=== PATIENT | female | born 1945 | race Caucasian/White ===

== ENCOUNTER 2019-03-10 23:42 | Observation (INO) | payer OTHER, SELFPAY ==
--- NOTE | 2019-03-10 23:47 | ED_ITS ---
HPI - General Adult General Chief complaint: Arrhythmia/Palpitations Stated complaint: AFIB Time Seen by Provider: 03/10/19 23:45 Source: patient Mode of arrival: ambulatory Limitations: no limitations History of Present Illness HPI narrative: Patient is a 74-year-old female. She is visiting the local area from [place]. Here for evaluation of which she thinks is an episode of atrial fibrillation. Patient states that several weeks ago she had her 1st episode of atrial fibrillation. Prior to that she stated that she had been diagnosed with SVT earlier in her life. She never had a diagnosis of atrial fibrillation but she states that she most likely had bouts of it earlier in her life but wishes never diagnosed. During her 1st episode she was seen in the emergency department. Had what appeared to be a Cardizem bolus which converted her to a sinus rhythm and she was discharged from the emergency department. Since then she has had 1 other episode of atrial fibrillation again requiring Cardizem martinez karon this time she had to be placed on a drip and admitted to the hospital. She has never been cardioverted. She has seen a cushion cover inspector since the onset of the symptoms. She states that she has had an echocardiogram. She does not remember the specifics of the results however was told by her cushion cover inspector that everything looked okay. She is on Eliquis. Has been on Eliquis for the past several weeks. She is currently wearing a Holter monitor. She stated that she was at her normal state health until a couple hours prior to arrival here in the emergency department she had what felt like another onset of atrial fibrillation. She was having small amount of chest discomfort. No headache. N o dizziness. Related Data Allergies Allergy/AdvReac Type Severity Reaction Status Date / Time levofloxacin [From Levaquin] Allergy Verified 03/10/19 23:54 Review of Systems Constitutional Denies fatigue and Denies headache(s) ENT Ears, Nose, Mouth, and Throat: Denies vertigo, Denies dizziness and Denies he adache(s) Cardiovascular Reports chest pain, Denies diaphoresis, Denies edema, Reports irregular heart rhythm, Reports palpitations, Denies dyspnea and Denies dyspnea on exertion Respiratory Denies cough, Denies dyspnea and Denies dyspnea on exertion Gastrointestinal Gastrointestinal: Denies abdominal pain, Denies nausea and Denies vomiting Genitourinary Denies dysuria Musculoskeletal Denies back pain, Denies myalgias and Denies arthralgias Integumentary/Breasts Denies rash Neurologic Denies vertigo, Denies dizziness and Denies headache(s) Endocrine Denies fatigue and Reports palpitations Hematologic/Lymphatic Comments: On Eliquis Allergic/Immunologic Denies urticaria [facility] Medical History Atrial fibrillation (Acute) SVT (supraventricular tachycardia) (Acute) Social History marital status: lives independently: Yes Social History marital status: lives independently: Yes Exam Initial Vital Signs Initial Vital Signs: Vital Signs Temperature 98.2 F 03/10/19 23:48 Pulse Rate 121 H 03/10/19 23:48 Respiratory Rate 15 03/10/19 23:48 Blood Pressure 142/102 H 03/10/19 23:48 Pulse Oximetry 96 03/10/19 23:48 Const General: cooperative, comfortable, well developed, well groomed and No acute distress Orientation: alert and oriented x3 HENMT Head: normal to inspection and normocephalic Resp Effort & Inspection: normal respiratory effort Auscultation: clear to auscultation bilaterally Cardio Rate: tachycardic Rhythm: abnormal rhythm irregularly irregular Pulses: radial pulses present bilaterally GI Inspection: non-distended Palpation: soft, No firm and No tender Skin Lesions: no lesions Rashes: no rashes Neuro General: alert, awake and oriented x3 Cognition: normal cognition Speech: speech normal Gait: normal gait Motor: muscle tone normal throughout Extrem General: normal to inspection, capillary refill normal and No edema Psych Appearance: grossly normal and well kempt Procedures Cardioversion Consent Signed: Yes Indication: Atrial fibrillation Cardiac rhythm prior to cardioversion: Atrial fibrillation Stability: Stable Number of attempts (shocks): 2 Joules used: 150 and 200 Cardiac rhythm post-cardioversion: Atrial fibrillation Procedural Sedation Patient Age: Patient is 5yrs or older Consent signed: Yes Time out performed: Yes Indication: cardioversion ASA Class: II Mallampati Airway Classification: Class II Preparation: conveyor monitor applied, capnometry used, supplemental O2 applied and suction/airway equipment at bedside Fentanyl: IV Fentanyl dose (mcg): 50 Midazolam: IV Midazolam dose (mg): 3 ED Sedation Level: Moderate (Concious) Patient Tolerated Procedure: Well Complications: hypoventilation Interventions: Airway repositioned and Assist by BVM Scores GCS Ashish coma scale eye opening: Spontaneous [place] coma scale verbal response: Orientated Ashish coma scale motor response: Obey commands Ashish coma scale total score: 15 Course Orders Ordered: ED Orders 03/10/19 23:46 EKG-12 Lead Stat 03/11/19 00:01 Complete Blood Count AUTO DIFF Stat Comprehensive Metabolic Panel Stat Lipase Stat Partial Thromboplastin Time Stat Prothrombin Time INR Stat 03/11/19 01:19 EKG-12 Lead Stat 03/11/19 02:20 EKG-12 Lead Stat Sodium Chloride (Normal Saline 0.9%) 1,000 mls @ 1,000 mls/hr IV BOLUS ONE Stop: 03/11/19 03:17 Diltiazem HCl 125 mg/ Dextrose 125 mls @ 5 mls/hr IV TITRATE SANDHYA; Protocol Discontinued Medications Diltiazem HCl (Cardizem) 20 mg IV NOW ONE Stop: 03/11/19 00:10 Last Admin: 03/11/19 00:24 Dose: 20 mg Fentanyl (Sublimaze) 50 mcg IV NOW ONE Stop: 03/11/19 02:32 Midazolam HCl (Versed) 3 mg IV NOW ONE Stop: 03/11/19 02:32 Vital Signs - 8 hr 03/10/19 23:48 03/11/19 00:24 03/11/19 00:44 Temperature 98.2 F Pulse Rate 121 H 124 H 89 Respiratory Rate 15 20 Blood Pressure 142/102 H 148/84 H Blood Pressure [Right Arm] 152/85 H Pulse Oximetry 96 97 03/11/19 01:13 Temperature Pulse Rate 92 H Respiratory Rate 16 Blood Pressure Blood Pressure [Right Arm] 116/61 Pulse Oximetry 97 Medical Decision Making Lab Data Lab results reviewed: Yes I reviewed the patient's lab results. Result diagrams: 03/11/19 00:01 03/11/19 00:01 Lab Results 03/11/19 03/11/19 03/11/19 Range/Units 00:01 00:01 00:01 WBC 7.4 (4.5-11.0) X10^3/uL RBC 3.79 L (4.0-5.2) X10^6/uL Hgb 12.7 (12.0-16.0) g/dL Hct 36.2 (36-46) % MCV 95.4 (80-100) fL MCH 33.4 (26-34) PG MCHC 35.1 (30-36) % RDW 11.9 (11.6-14.8) % Plt Count 234 (150-400) X10^3/uL Neut % (Auto) 66.8 (50-75) % Lymph % (Auto) 19.6 L (25-40) % [place] % (Auto) 10.1 (3-14) % Eos % (Auto) 2.7 (2-4) % Baso % (Auto) 0.8 (0-2) % Neut # (Auto) 4900 (9103-0047) /uL Lymph # (Auto) 1400 (5229-6312) /uL [place] # (Auto) 700 (0-900) /uL Eos # (Auto) 200 (0-450) /uL Baso # (Auto) 100 (0-100) /uL PT 14.3 H (10.1-12.7) SECONDS INR 1.2 (0.9-1.3) APTT 36 (26.4-36.2) SECONDS Sodium 131 L (137-145) mmol/L Potassium 3.4 (3.4-5.1) mmol/L Chloride 95 L (98-107) mmol/L Carbon Dioxide 26 (22-32) mmol/L BUN 30 H (7-17) mg/dL Creatinine 0.90 (0.52-1.04) mg/dL Estimated GFR > 60.0 (>60) mL/min BUN/Creatinine Ratio 33.3 H (6-22) Glucose 112 H (80-110) mg/dL Calcium 8.5 (8.4-10.2) mg/dL Total Bilirubin 0.4 (0.2-1.3) mg/dL AST 48 H (14-36) IU/L ALT 29 (9-52) IU/L Alkaline Phosphatase 213 H (38-126) U/L Total Protein 7.9 (6.3-8.2) g/dL Albumin 3.5 (3.5-5.0) g/dL Globulin 4.4 H (1.7-4.1) g/dL Albumin/Globulin Ratio 0.8 L (1.0-2.8) Lipase 203 (23-300) U/L Point of Care Testing Test Results Not applicable Point of care testing: Point of Care Testing Test Results Not applicable ECG Data Attestation: I personally reviewed and interpreted this ECG as follows: Prior ECG tracings: not available for review Interpretation: EKG timed 2350 hours Atrial fibrillation Ventricular rate of 110 Left axis deviation Incomplete right bundle branch block Normal QRS Normal QTC No ST T wave changes EKG timed 0130 hours after Cardizem bolus Atrial fibrillation Ventricular rate of 96 Left axis deviation Normal QRS Normal QTC No ST T wave changes EKG time 0233 hours after cardioversion Atrial fibrillation Ventricular rate of 109 Left axis deviation Incomplete right bundle branch block Normal QRS Nonspecific ST T wave changes MDM Narrative Medical decision making narrative: Patient arrived stable atrial fibrillation. Had a discussion with her regarding options to include rate control versus rhythm control. Patient opted to try the Cardizem bolus 1st because this has been successful in the past. She was given 20 mg of Cardizem but this was unsuccessful in converting the rhythm. Her rate was improved. Had further discussion with her regarding options to include sedation with cardioversion for starting her on a Cardizem bolus. The patient opted to go with the cardioversion. She was sedated with fentanyl and Versed which she tolerated well. Two attempts at cardioversion 1st at 150 joules and 2nd 200 joules were unsuccessful. Patient was placed on a Cardizem drip. Patient was never unstable during her time here. She has been anticoagulated for the past several weeks. Will admit the patient for further evaluation and treatment. Discussed admission with the patient and the . They expressed understanding and agreement. Discussed the case with the night hospitalist who accepts. Critical Care Time Critical Care Time: Yes Total Critical Care Time: 40 Attestation: The high probability of a clinically significant, sudden or life threatening deterioration of the cardiovascular system(s) required my full and direct attention, intervention and personal management. The aggregate critical care time was 40 minutes. This time is in addition to time spent performing reported procedures but includes the following: [] Data Review and interpretation [] Patient assessment and monitoring of vital signs [] Documentation [] Medication orders and management Discharge Plan Departure Patient Disposition: Admitted As Inpatient Clinical Impression: Atrial fibrillation Qualifiers: Atrial fibrillation type: paroxysmal Qualified Code(s): I48.0 - Paroxysmal atrial fibrillation
[2019-03-10 23:48] VITALS: BP 142/102; PULSE 121; RESP 15; TEMP 36.8; O2SAT 96; BMI 24.4
[2019-03-11] VITALS (28 sets, daily range): BP systolic 87–152; BP diastolic 42–115; PULSE 61–125; RESP 10–21; TEMP 36.8–37.1; O2SAT 94–99; BMI 24.4
[2019-03-11 00:23] LABS: Add Manual Diff / Slide Review NO; Basophils Absolute Auto 100 /uL (0-100); Basophils Percent Auto 0.8 % (0-2); Eosinophils Absolute Auto 200 /uL (0-450); Eosinophils Percent Auto 2.7 % (2-4); Hematocrit 36.2 % (36-46); Hemoglobin 12.7 g/dL (12.0-16.0); Lymphocytes Absolute Auto 1400 /uL (1100-4500); Lymphocytes Percent Auto 19.6 % (25-40); Mean Corpuscular HGB Conc 35.1 % (30-36); Mean Corpuscular Hemoglobin 33.4 PG (26-34); Mean Corpuscular Volume 95.4 fL (80-100); Monocytes Absolute Auto 700 /uL (0-900); Monocytes Percent Auto 10.1 % (3-14); Neutrophils Absolute Auto 4900 /uL (1500-7000); Neutrophils Percent Auto 66.8 % (50-75); Platelet Count 234 X10^3/uL (150-400); Red Blood Cell Count 3.79 X10^6/uL (4.0-5.2); Red Cell Distribution Width 11.9 % (11.6-14.8); White Blood Cell Count 7.4 X10^3/uL (4.5-11.0)
[2019-03-11] MEDS: dilTIAZem 5 MG/ML SDV 20 MG IV (00:24)
[2019-03-11 00:31] LABS: INR 1.2 (0.9-1.3); Prothrombin Time 14.3 SECONDS (10.1-12.7)
[2019-03-11 00:33] LABS: PTT Partial Thromboplastin Tim 36 SECONDS (26.4-36.2)
[2019-03-11 00:34] LABS: Alanine Aminotransferase 29 IU/L (9-52); Albumin 3.5 g/dL (3.5-5.0); Albumin Globulin Ratio 0.8 (1.0-2.8); Alkaline Phosphatase 213 U/L (38-126); Aspartate Aminotransferase 48 IU/L (14-36); BUN Creatinine Ratio 33.3 (6-22); Bilirubin Total 0.4 mg/dL (0.2-1.3); Blood Urea Nitrogen 30 mg/dL (7-17); Calcium 8.5 mg/dL (8.4-10.2); Carbon Dioxide 26 mmol/L (22-32); Chloride 95 mmol/L (98-107); Estimated Glomerular Filt Rate > 60.0 mL/min (>60); Globulin 4.4 g/dL (1.7-4.1); Glucose 112 mg/dL (80-110); HEMOLYSIS 25 (0-50); Lipase 203 U/L (23-300); Potassium 3.4 mmol/L (3.4-5.1); Sodium 131 mmol/L (137-145); Total Protein 7.9 g/dL (6.3-8.2)
[2019-03-11] MEDS: SODIUM CHLORIDE 0.9% 1,000 ML 1000 ML IV (02:15)
[2019-03-11] MEDS: MIDAZOLAM 5 MG/ML VIAL 3 MG IV (02:20)
[2019-03-11] MEDS: fentaNYL 100 MCG/2 ML INJ 50 MCG IV (02:21)
[2019-03-11] MEDS: dilTIAZem 125 MG in DEXTROSE 5 % IN WATER 100 ML IV (02:47)
--- NOTE | 2019-03-11 03:02 | PC.NURSE ---
0210 Pt moved to RM1 from RM 8 for procedural sedation for sync cardioversion for afib. Pt and spouse reviewed the procedure and consent signed. RT at the bedside and setting up equipments for procedural sedation.
[2019-03-11 03:42] LABS: Magnesium 1.5 mg/dL (1.6-2.3); Phosphorous 3.2 mg/dL (2.8-4.1)
--- NOTE | 2019-03-11 04:33 | PC.NURSE ---
Addendum entered by Charlie Pulliam R.N. 03/11/19 04:36: Pt still in Afib rhythm Original Note: Pt maintaining her HR in 80-90's with Cardizem drip at 7.5 mg/hr. Denies cp, sob, palpitation
--- NOTE | 2019-03-11 06:58 | PC.NURSE ---
Patient admitted to ICU at 0500. A/O x4. Diltiazem gtt infusing at 7.5mg/hr with NS @ 75ml/hr, remains in A-fib, rate 80s-90s, increased briefly to 120s while up to BR, denies chest pain, pressure, palpitations, or dizziness. Diltiazem gtt decreased to 5mg/hr at 0530. See vital trends.
[2019-03-11] MEDS: MAGNESIUM SULFATE 2 GM/50 ML PIGGYBACK IV (08:26)
--- NOTE | 2019-03-11 08:55 | CM.DANOTE ---
Discharge Planning/Care Management DCP: assessment: initiated: case received, EMR reviewed and including the inside sales advisor assessment last night: social service consult needed. Documentation reveals that pt is a 39 year old female who admitted last night: 22:20 as a direct admit from [facility]. Payer: Medicare Admission status: in review: per UR RN Phylicia. PCP: Soco Siddiqi Pt with multiple medical and psychiatric comorbidities. 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 Pt indicates that her father, who just returned from a rehab/recovery stay including dialysis treatments has been taking so much care that she has been neglecting her own health needs. P: discuss in Team Rounds and with DCPlanner/social sciences department chair colleague Juliette and then follow accordingly. Will transition case to [facility] team if all agree appropriate. CM Discharge Assessment Start: 03/11/19 08:53 Freq: Status: Active Protocol: Document 03/11/19 08:53 ITV (Rec: 03/11/19 08:55 ITV [id number]) Discharge Planning Assessment Advance Directives? Yes History Provided By Patient Medical Record Prior Living Arrangements House Caregiver for Another Yes: father Max Jovel Review Status In Process
[2019-03-11] MEDS: LORazepam 1 MG TABLET PO (09:01)
[2019-03-11] MEDS: dilTIAZem 30 MG TABLET PO ×2 (09:06→12:30)
--- NOTE | 2019-03-11 09:08 | P.HP_ITS ---
History of Present Illness Date Patient Seen: 03/11/19 Chief complaint: AFIB Narrative: Jeanne Browne is a 74-year-old female with past medical history significant for hypertension, hyperlipidemia, SVT, paroxysmal atrial fibrillation on Eliquis recently diagnosed in January 2019, controlled asthma, and severe anxiety who presented to the ED for palpitations, shortness of breath, and chest tightness related to atrial fibrillation with RVR. The patient reports that she recently was diagnosed with atrial fibrillation during an episode of RVR at the end of January 2019. During her 1st episode she was given a bolus dose of metoprolol with no response than a diltiazem bolus and converted to sinus rhythm. She was started on Eliquis at that time. She has had 1 other episode of atrial fibrillation with RVR several weeks later and which she was again placed on diltiazem drip and converted to sinus rhythm after several hours. She has been on metoprolol succinate 100 mg daily for rate control. She is from [place] and is visiting on vacation. She went on a hike yesterday and found herself short of breath during the hike. She began having palpitations, shortness of breath, and chest tightness afterward. She wears a heart rate monitor and could tell she was back in atrial fibrillation and came to the ED. She has been placed on a 30 day heart monitor per her tea tree farm worker in [place]. Currently she denies palpitations, shortness of breath, chest pain, abdominal pain, nausea, vomiting, fever, chills, dysuria, diarrhea or constipation. She reports chronic rhinitis related to seasonal allergies for which she uses Flonase. She does endorse headache related to not having caffeine this morning and mild chest tightness. She is very anxious and worried about her atrial fibrillation, as well as, her vacation and cancellation of plans. She has associated ?stomach knots? related to her anxiety. She reports significant caffeine consumption previously was 5-6 cups of coffee per day and recently cutting back to 1-2 cups of coffee per day. She also drinks 1 cocktail nightly. In the ED, cardiov ersion was attempted x2 without success and she was placed on a diltiazem drip. She is admitted for further management. Patient History Medical History Asthma (Acute) Atrial fibrillation (Acute) DJD (degenerative joint disease) (Acute) Hyperlipidemia (Acute) Hypertension (Acute) IBS (irritable bowel syndrome) (Acute) Macular degeneration (Acute) SVT (supraventricular tachycardia) (Acute) Seasonal allergies (Acute) Surgical History H/O adenoidectomy (Acute) S/P rotator cuff repair (Acute) Family History (Updated 03/11/19 @ 09:02 by Kelly Pompa DO) Mother CVA (cerebral vascular accident) Atrial fibrillation Father CVA (cerebral vascular accident) Heart attack Sister Healthy adult Brother No problems noted. Brother Pancreatic cancer Social History marital status: household members: spouse lives independently: Yes Smoking Status: Never smoker alcohol intake: current Family & Social History Family History Mother CVA (cerebral vascular accident) Atrial fibrillation Father CVA (cerebral vascular accident) Heart attack Sister Healthy adult Brother No problems noted. Brother Pancreatic cancer Social History: household members spouse Prior Living Arrangements House lives independently Yes Safety & Behavioral: Feels Safe in Current Yes Environment Been Physically Hurt or No Threatened By a Person Suicidal Ideation Description None Suicide Plan Description No Plan Tobacco & Substance use: Smoking Status Former smoker .25-.5 PPD x 8 years alcohol intake current alcohol intake frequency 1 drinks per day Substance Use Type does not use Meds Home Medications Medication Instructions Recorded Confirmed Type Artificial Tears (polyvin alc) 1 drp EYE-BOTH PRN PRN 03/11/19 03/11/19 History Ocuvite with Lutein 1 tab PO BID 03/11/19 03/11/19 History apixaban 1 tab PO BID 03/11/19 03/11/19 History atorvastatin 1 tab PO BEDTIME 03/11/19 03/11/19 History budesonide-formoterol 1 puff INHALATION DAILY 03/11/19 03/11/19 History buspirone 1 tab PO BID 03/11/19 03/11/19 History diltiazem HCl 120 mg PO DAILY #30 cap 03/11/19 Rx fluticasone propionate 2 spray INTRANASAL DAILY 03/11/19 03/11/19 History lorazepam [Ativan] 0.25 - 0.5 mg PO DAILY PRN #7 tab 03/11/19 Rx losartan 100 mg PO DAILY #30 tab 03/11/19 Rx magnesium chloride [Mag 64] 64 mg PO DAILY #30 tab 03/11/19 Rx potassium chloride 10 meq PO DAILY #30 cap 03/11/19 Rx tramadol 25 mg PO QAM 03/11/19 03/11/19 History Allergies Allergy/AdvReac Type Severity Reaction Status Date / Time levofloxacin [From Levaquin] Allergy Verified 03/10/19 23:54 Review of Systems Review of Systems A 10 system comprehensive review of systems was conducted with the patient and found to be negative except as above in the History of Present Illness. Exam Vital Signs (past 8 hours): - 03/11/19 01:13 03/11/19 02:15 03/11/19 02:20 Temperature Pulse Rate 92 H 125 H 119 H Respiratory Rate 16 14 10 L Blood Pressure Blood Pressure [Right Arm] 116/61 120/77 141/115 H Pulse Oximetry 97 98 03/11/19 02:25 03/11/19 02:30 03/11/19 02:40 Temperature Pulse Rate 114 H 109 H 105 H Respiratory Rate 17 16 16 Blood Pressure Blood Pressure [Right Arm] 135/106 H 110/67 127/89 Pulse Oximetry 97 94 96 03/11/19 02:47 03/11/19 03:30 03/11/19 04:32 Temperature Pulse Rate 105 H 101 H 86 Respiratory Rate 16 16 Blood Pressure 134/61 Blood Pressure [Right Arm] 114/56 L 133/71 Pulse Oximetry 95 98 03/11/19 05:00 03/11/19 05:30 03/11/19 06:00 Temperature 98.3 F Pulse Rate 83 80 90 Respiratory Rate 13 18 15 Blood Pressure 134/77 123/71 130/72 Blood Pressure [Right Arm] Pulse Oximetry 96 97 95 03/11/19 06:30 03/11/19 07:00 03/11/19 07:30 Temperature Pulse Rate 88 78 87 Respiratory Rate 21 16 16 Blood Pressure 114/65 125/62 126/63 Blood Pressure [Right Arm] Pulse Oximetry 99 96 94 03/11/19 08:00 Temperature 98.8 F Pulse Rate 96 H Respiratory Rate 16 Blood Pressure 136/74 Blood Pressure [Right Arm] Pulse Oximetry 98 Oxygen Delivery Method Room Air Oxygen Flow Rate 0 Narrative Exam Narrative: General: Elderly female lying in bed in no acute distress, well-developed, well -nourished, very anxious and somewhat emotionally labile but appropriately interactive otherwise. HEENT: Normocephalic, atraumatic. External ears without defect. Pupils equal, round, and reactive to light. Anicteric sclerae, moist conjunctivae, and no lid lag. Oropharynx free of erythema and cobble stoning with moist mucosa. Neck: Supple with full range of motion. No jugular venous distension. No lymphadenopathy or thyromegaly. Cardiovascular: Irregularly irregular with holosystolic murmur at LSB. No rubs, or gallops appreciated Pulmonary: Clear to auscultation bilaterally without crackles, wheezes, or rhonchi. Normal respiratory effort with no use of accessory muscles. Abdomen: Soft, bowel sounds present, nontender, nondistended. No hepatosplenomegaly or masses appreciated. Extremities: No clubbing, cyanosis, or edema. Skin: Normal temperature, turgor, and texture; no rash, ulcers, or subcutaneous nodules appreciated. Neurological: Cranial nerves grossly intact. Normal muscle strength, tone, and bulk. Reflexes, coordination, and sensory function within normal limits. No known gait impairment. Psychiatric: Significantly anxious mood with emotional lability and normal a ffect. Alert and oriented to person, place, and time. Objective Labs Result Diagrams: 03/11/19 00:01 03/11/19 00:01 Labs: Laboratory Results - last 24 hr 03/11/19 03/11/19 03/11/19 00:01 00:01 00:01 WBC 7.4 RBC 3.79 L Hgb 12.7 Hct 36.2 MCV 95.4 MCH 33.4 MCHC 35.1 RDW 11.9 Plt Count 234 Neut % (Auto) 66.8 Lymph % (Auto) 19.6 L [place] % (Auto) 10.1 Eos % (Auto) 2.7 Baso % (Auto) 0.8 Neut # (Auto) 4900 Lymph # (Auto) 1400 [place] # (Auto) 700 Eos # (Auto) 200 Baso # (Auto) 100 PT 14.3 H INR 1.2 APTT 36 Sodium 131 L Potassium 3.4 Chloride 95 L Carbon Dioxide 26 BUN 30 H Creatinine 0.90 Estimated GFR > 60.0 BUN/Creatinine Ratio 33.3 H Glucose 112 H Calcium 8.5 Phosphorus Magnesium Total Bilirubin 0.4 AST 48 H ALT 29 Alkaline Phosphatase 213 H Total Protein 7.9 Albumin 3.5 Globulin 4.4 H Albumin/Globulin Ratio 0.8 L Lipase 203 Nasal Screen MRSA (PCR) 03/11/19 03/11/19 00:01 05:00 WBC RBC Hgb Hct MCV MCH MCHC RDW Plt Count Neut % (Auto) Lymph % (Auto) [place] % (Auto) Eos % (Auto) Baso % (Auto) Neut # (Auto) Lymph # (Auto) [place] # (Auto) Eos # (Auto) Baso # (Auto) PT INR APTT Sodium Potassium Chloride Carbon Dioxide BUN Creatinine Estimated GFR BUN/Creatinine Ratio Glucose Calcium Phosphorus 3.2 Magnesium 1.5 L Total Bilirubin AST ALT Alkaline Phosphatase Total Protein Albumin Globulin Albumin/Globulin Ratio Lipase Nasal Screen MRSA (PCR) Negative for mrsa Assessment & Plan Assessment & Plan narrative: Jeanne Browne is a 74-year-old female with past medical history significant for hypertension, hyperlipidemia, SVT, paroxysmal atrial fibrillation on Eliquis recently diagnosed in January 2019, controlled asthma, and severe anxiety who presented to the ED for palpitations, shortness of breath, and chest tightness related to atrial fibrillation with RVR. 1. Paroxysmal atrial fibrillation on Eliquis, with acute RVR, present on admission. Active. -Patient presented with palpitations, shortness of breath, and chest tightness related to atrial fibrillation with RVR. -TSH within normal limits at 2.63. She denies upper respiratory tract symptoms other than chronic rhinitis related allergies and respiratory PCR was negative. Denies symptoms. -Patient was cardioverted x2 in the ED without success. Started diltiazem gtt which her heart rate has been well controlled in the 90s. Ordered short-acting diltiazem 30 mg every 6 hours and titrate off diltiazem gtt. Will titrate short-acting diltiazem as needed. -Continue Eliquis 5 mg twice daily. 2. Acute hypomagnesemia, present on admission. Active. -Initial magnesium level 1.5. Ordered magnesium sulfate 2 g IV x1. -Continue to monitor magnesium level closely and replete as needed. 3. Acute hypokalemia, present on admission. Active. -Initial potassium level 3.4. Ordered potassium chloride 40 mEq IV x1. -Continue to monitor potassium closely and replete as needed. 4. Hyponatremia, unclear acuity but possibly chronic and related to hydrochlorothiazide use, present on admission. Active. -Initial sodium 131. -Received 1 L normal saline bolus in ED. Also received sodium chloride with diltiazem and potassium and magnesium replacement. -Continue to monitor sodium level closely and replete as needed. -Discontinued hydrochlorothiazide as likely the cause of her hyponatremia and electrolyte derangement. 5. Hypertension, chronic, present on admission. Stable. -Continue losartan 100 mg daily. Discontinue hydrochlorothiazide 25 mg daily as likely causing her mild hyponatremia. 6. Hyperlipidemia, chronic, present on admission. Stable. -Continue atorvastatin 40 mg daily at bedtime. 7. Generalized anxiety, chronic, present on admission. Stable. -Continue buspirone 1 tab twice daily. 8. Degenerative disc disease, chronic, present on admission. Stable. -Continue tramadol 25 mg daily. 9. Mild intermittent asthma, well controlled, chronic, present on admission. Stable. -Continue home Symbicort 1 puff daily. 10. Seasonal allergies, chronic, present on admission. Stable. -Continue home Flonase 2 sprays intranasally daily. Patient is admitted under inpatient status with expected length of stay greater than 2 midnights due to severity of presenting symptoms, risk of adverse event, and complexity of treatment plan.
[2019-03-11 10:51] LABS: TSH w/ Reflex to FT4 2.63 uIU/mL (0.47-4.68)
[2019-03-11] MEDS: POTASSIUM CHLORIDE 40 MEQ in SODIUM CHLORIDE 0.9% 500 ML 130 ML IV (11:00)
[2019-03-11] MEDS: APIXABAN 5 MG TABLET PO (11:15)
[2019-03-11 11:52] LABS: Adenovirus Not Detected (Not Detect); Bordetella pertussis Not Detected (Not Detect); Chlamydophila pneumoniae Not Detected (Not Detect); Coronavirus 229E Not Detected (Not Detect); Coronavirus HKU1 Not Detected (Not Detect); Coronavirus NL 63 Not Detected (Not Detect); Coronavirus OC43 Not Detected (Not Detect); Human Metapneumovirus Not Detected (Not Detect); Human Rhinovirus/Enterovirus Not Detected (Not Detect); Influenza A Not Detected (Not Detect); Influenza B Not Detected (Not Detect); Mycoplasma pneumoniae Not Detected (Not Detect); Parainfluenza Virus 1 Not Detected (Not Detect); Parainfluenza Virus 2 Not Detected (Not Detect); Parainfluenza Virus 3 Not Detected (Not Detect); Parainfluenza Virus 4 Not Detected (Not Detect); Respiratory Syncytial Virus Not Detected (Not Detect)
[2019-03-11] MEDS: TRAMADOL 50 MG TABLET 25 MG PO (12:45)
--- NOTE | 2019-03-11 14:05 | PC.NURSE ---
Received in bed, awake, oriented, very anxious. Monitor showed atrial fibrillation/RVR. VSS. Denied CP or SOB. Spo2 >90% on RA. Lungs CTA bilat. Diltiazem gtt infusing. Electrolyte replacement KCl and MgSo4 started. Oral diltiazem given. Ativan 1mg P.O. given to good effect. Titrating diltiazem gtt off. Converted to SR @ 1115. Hemodynamically stable, and remains in SR at this time. Taking p.o. without difficulty. OOB to BR with minimal assistance. Voids. UO adequate. Discussed plan of care and medication regimen. Anticipate discharge later today or tomorrow.
[2019-03-11] MEDS: dilTIAZem CD 120 MG CAP PO (14:31)
--- NOTE | 2019-03-11 15:18 | PM.DS.1 ---
History of Present Illness Chief complaint: AFIB Narrative: Written by myself Dr. Pompa: Jeanne Browne is a 74-year-old female with past medical history significant for hypertension, hyperlipidemia, SVT, paroxysmal atrial fibrillation on Eliquis recently diagnosed in January 2019, controlled asthma, and severe anxiety who presented to the ED for palpitations, shortness of breath, and chest tightness related to atrial fibrillation with RVR. The patient reports that she recently was diagnosed with atrial fibrillation during an episode of RVR at the end of January 2019. During her 1st episode she was given a bolus dose of metoprolol with no response than a diltiazem bolus and converted to sinus rhythm. She was started on Eliquis at that time. She has had 1 other episode of atrial fibrillation with RVR several weeks later and which she was again placed on diltiazem drip and converted to sinus rhythm after several hours. She has been on metoprolol succinate 100 mg daily for rate control. She is from [place] and is visiting on vacation. She went on a hike yesterday and found herself short of breath during the hike. She began having palpitations, shortness of breath, and chest tightness afterward. She wears a heart rate monitor and could tell she was back in atrial fibrillation and came to the ED. She has been placed on a 30 day heart monitor per her data modeling specialist in [place]. Currently she denies palpitations, shortness of breath, chest pain, abdominal pain, nausea, vomiting, fever, chills, dysuria, diarrhea or constipation. She reports chronic rhinitis related to seasonal allergies for which she uses Flonase. She does endorse headache related to not having caffeine this morning and mild chest tightness. She is very anxious and worried about her atrial fibrillation, as well as, her vacation and cancellation of plans. She has associated ?stomach knots? related to her anxiety. She reports significant caffeine consumption previously was 5-6 cups of coffee per day and recently cutting back to 1-2 cups of coffee per day. She also drinks 1 cocktail nightly. In the ED, cardioversion was attempted x2 without success and she was placed on a diltiazem drip. She is admitted for further management. Discharge Providers Date of admission: 03/11/19 04:36 Discharge Date: 03/11/19 Discharge provider: Kelly Cheyenne Aletha DO Summary Discharge Diagnosis: 1. Paroxysmal atrial fibrillation on Eliquis, with acute RVR, present on admission. Active. 2. Acute hypomagnesemia, present on admission. Active. 3. Acute hypokalemia, present on admission. Active. 4. Hyponatremia, unclear acuity but possibly chronic and related to hydrochlorothiazide use, present on admission. Active. 5. Hypertension, chronic, present on admission. Stable. 6. Hyperlipidemia, chronic, present on admission. Stable. 7. Generalized anxiety, chronic, present on admission. Stable. 8. Degenerative disc disease, chronic, present on admission. Stable. 9. Mild intermittent asthma, well controlled, chronic, present on admission. Stable. 10. Seasonal allergies, chronic, present on admission. Stable. Hospital Course: Jeanne Browne is a 74-year-old female with past medical history significant for hypertension, hyperlipidemia, SVT, paroxysmal atrial fibrillation on Eliquis recently diagnosed in January 2019, controlled asthma, and severe anxiety who presented to the ED for palpitations, shortness of breath, and chest tightness related to atrial fibrillation with RVR. 1. Paroxysmal atrial fibrillation on Eliquis, with acute RVR, present on admission. Resolved. -Patient presented with palpitations, shortness of breath, and chest tightness related to atrial fibrillation with RVR. -TSH within normal limits at 2.63. She denies upper respiratory tract symptoms other than chronic rhinitis related allergies and respiratory PCR was negative. Denies symptoms. -Echocardiogram on 02/26/19 in [place] demonstrated LV normal size with hyperdynamic systolic function EF 75 to 80%, RV is normal size with normal systolic function, mild mitral regurgitation and no pericardial effusion. -Patient was cardioverted x2 in the ED without success. Started diltiazem gtt which her heart rate was well controlled and transitioned to short-acting diltiazem. Patient spontaneously cardioverted on short-acting diltiazem and recovered more quickly than anticipated. Switched patient to long-acting diltiazem 120 mg daily. Discontinued metoprolol succinate 100 mg daily (patient has been unresponsive to this for rate control). -Continued Eliquis 5 mg twice daily. 2. Acute hypomagnesemia, present on admission. Active. -Initial magnesium level 1.5. Received magnesium sulfate 2 g IV x1. -Continued to monitor magnesium level closely and replete as needed. -Discharged with low-dose magnesium chloride 64 mg daily. 3. Acute hypokalemia, present on admission. Active. -Initial potassium level 3.4. Received potassium chloride 40 mEq IV x1. -Continued to monitor potassium closely and replete as needed. -Discharged with low-dose potassium chloride extended-release 10 mEq daily. 4. Hyponatremia, unclear acuity but possibly chronic and related to hydrochlorothiazide use, present on admission. Active. -Initial sodium 131. -Received 1 L normal saline bolus in ED. Also received sodium chloride with diltiazem and potassium and magnesium replacement. -Continued to monitor sodium level closely and replete as needed. -Discontinued hydrochlorothiazide as likely the cause of her hyponatremia and electrolyte derangement. 5. Hypertension, chronic, present on admission. Stable. -Continued losartan 100 mg daily. Discontinue hydrochlorothiazide 25 mg daily as likely causing her mild hyponatremia. 6. Hyperlipidemia, chronic, present on admission. Stable. -Continued atorvastatin 40 mg daily at bedtime. 7. Generalized anxiety, chronic, present on admission. Stable. -Continued buspirone 1 tab twice daily. -Received lorazepam 1 mg PO x1 for significant anxiety. Provided patient with prescription of lorazepam 0.25-0.5 mg daily qty # 7 only as needed for severe anxiety or panic attacks. Provided Education regarding benzodiazipine and instructed patient not to use with alcohol or concurrently with her tramadol. 8. Degenerative disc disease, chronic, present on admission. Stable. -Continued tramadol 25 mg daily. 9. Mild intermittent asthma, well controlled, chronic, present on admission. Stable. -Continued home Symbicort 1 puff daily. 10. Seasonal allergies, chronic, present on admission. Stable. -Continued home Flonase 2 sprays intranasally daily. Exam Vital Signs (past 8 hours): - 03/11/19 07:30 03/11/19 08:00 03/11/19 09:06 Temperature 98.8 F Pulse Rate 87 96 H 90 Respiratory Rate 16 16 Blood Pressure 126/63 136/74 144/68 H Pulse Oximetry 94 98 03/11/19 09:41 03/11/19 10:41 03/11/19 11:00 Temperature Pulse Rate 100 H 67 61 Respiratory Rate 19 20 17 Blood Pressure 136/67 113/75 87/42 L Pulse Oximetry 97 96 95 03/11/19 11:20 03/11/19 12:00 03/11/19 13:00 Temperature 98.7 F Pulse Rate 76 65 67 Respiratory Rate 19 15 14 Blood Pressure 121/50 L 115/61 98/47 L Pulse Oximetry 98 96 96 03/11/19 14:00 Temperature Pulse Rate 68 Respiratory Rate 17 Blood Pressure 113/61 Pulse Oximetry 98 Oxygen Delivery Method Room Air Oxygen Flow Rate 0 Narrative Exam Narrative: General: Elderly female lying in bed in no acute distress, well-developed, well-nourished, anxiety improved and appropriately interactive. HEENT: Normocephalic, atraumatic. External ears without defect. Pupils equal, round, and reactive to light. Anicteric sclerae, moist conjunctivae, and no lid lag. Oropharynx free of erythema and cobble stoning with moist mucosa. Neck: Supple with full range of motion. No jugular venous distension. No lymphadenopathy or thyromegaly. Cardiovascular: Regular rate and rhythm with holosystolic murmur at LSB. No rubs, or gallops appreciated Pulmonary: Clear to auscultation bilaterally without crackles, wheezes, or rhonchi. Normal respiratory effort with no use of accessory muscles. Abdomen: Soft, bowel sounds present, nontender, nondistended. No hepatosplenomegaly or masses appreciated. Extremities: No clubbing, cyanosis, or edema. Skin: Normal temperature, turgor, and texture; no rash, ulcers, or subcutaneous nodules appreciated. Neurological: Cranial nerves grossly intact. Normal muscle strength, tone, and bulk. Reflexes, coordination, and sensory function within normal limits. No known gait impairment. Psychiatric: Anxiety significantly improved. Normal affect. Alert and oriented to person, place, and time. Objective Labs Result Diagrams: 03/11/19 00:01 03/11/19 00:01 Labs: Laboratory Results - last 24 hr 03/10/19 03/11/19 03/11/19 23:55 00:01 00:01 WBC 7.4 RBC 3.79 L Hgb 12.7 Hct 36.2 MCV 95.4 MCH 33.4 MCHC 35.1 RDW 11.9 Plt Count 234 Neut % (Auto) 66.8 Lymph % (Auto) 19.6 L [place] % (Auto) 10.1 Eos % (Auto) 2.7 Baso % (Auto) 0.8 Neut # (Auto) 4900 Lymph # (Auto) 1400 [place] # (Auto) 700 Eos # (Auto) 200 Baso # (Auto) 100 PT 14.3 H INR 1.2 APTT 36 Sodium Potassium Chloride Carbon Dioxide BUN Creatinine Estimated GFR BUN/Creatinine Ratio Glucose Calcium Phosphorus Magnesium Total Bilirubin AST ALT Alkaline Phosphatase Total Protein Albumin Globulin Albumin/Globulin Ratio Lipase TSH 2.63 Nasal Screen MRSA (PCR) Chlamy pneumoniae PCR Adenovirus (PCR) B.parapertussis DNA PCR Coronavirus OC43 (PCR) Coronavirus HKU1 (PCR) Coronavirus 229E (PCR) Coronavirus NL63 (PCR) Human Metapneumovir PCR Influenza Type A (PCR) Influenza Type B (PCR) M. pneumoniae (PCR) Parainfluenza 1 (PCR) Parainfluenza 2 (PCR) Parainfluenza 3 (PCR) Parainfluenza 4 (PCR) RSV (PCR) Entero/Rhino (PCR) 03/11/19 03/11/19 03/11/19 00:01 00:01 05:00 WBC RBC Hgb Hct MCV MCH MCHC RDW Plt Count Neut % (Auto) Lymph % (Auto) [place] % (Auto) Eos % (Auto) Baso % (Auto) Neut # (Auto) Lymph # (Auto) [place] # (Auto) Eos # (Auto) Baso # (Auto) PT INR APTT Sodium 131 L Potassium 3.4 Chloride 95 L Carbon Dioxide 26 BUN 30 H Creatinine 0.90 Estimated GFR > 60.0 BUN/Creatinine Ratio 33.3 H Glucose 112 H Calcium 8.5 Phosphorus 3.2 Magnesium 1.5 L Total Bilirubin 0.4 AST 48 H ALT 29 Alkaline Phosphatase 213 H Total Protein 7.9 Albumin 3.5 Globulin 4.4 H Albumin/Globulin Ratio 0.8 L Lipase 203 TSH Nasal Screen MRSA (PCR) Negative for mrsa Chlamy pneumoniae PCR Adenovirus (PCR) B.parapertussis DNA PCR Coronavirus OC43 (PCR) Coronavirus HKU1 (PCR) Coronavirus 229E (PCR) Coronavirus NL63 (PCR) Human Metapneumovir PCR Influenza Type A (PCR) Influenza Type B (PCR) M. pneumoniae (PCR) Parainfluenza 1 (PCR) Parainfluenza 2 (PCR) Parainfluenza 3 (PCR) Parainfluenza 4 (PCR) RSV (PCR) Entero/Rhino (PCR) 03/11/19 09:55 WBC RBC Hgb Hct MCV MCH MCHC RDW Plt Count Neut % (Auto) Lymph % (Auto) [place] % (Auto) Eos % (Auto) Baso % (Auto) Neut # (Auto) Lymph # (Auto) [place] # (Auto) Eos # (Auto) Baso # (Auto) PT INR APTT Sodium Potassium Chloride Carbon Dioxide BUN Creatinine Estimated GFR BUN/Creatinine Ratio Glucose Calcium Phosphorus Magnesium Total Bilirubin AST ALT Alkaline Phosphatase Total Protein Albumin Globulin Albumin/Globulin Ratio Lipase TSH Nasal Screen MRSA (PCR) Chlamy pneumoniae PCR Not detected Adenovirus (PCR) Not detected B.parapertussis DNA PCR Not detected Coronavirus OC43 (PCR) Not detected Coronavirus HKU1 (PCR) Not detected Coronavirus 229E (PCR) Not detected Coronavirus NL63 (PCR) Not detected Human Metapneumovir PCR Not detected Influenza Type A (PCR) Not detected Influenza Type B (PCR) Not detected M. pneumoniae (PCR) Not detected Parainfluenza 1 (PCR) Not detected Parainfluenza 2 (PCR) Not detected Parainfluenza 3 (PCR) Not detected Parainfluenza 4 (PCR) Not detected RSV (PCR) Not detected Entero/Rhino (PCR) Not detected Discharge Plan Discharge Plan Patient Disposition: Home Discharge comment: You're being discharged home. Please follow-up with your PCP and data modeling specialist, as soon as, once you return to [place]. You have been prescribed diltiazem 120 mg daily to start tomorrow morning, losartan 100 mg daily, and low-dose magnesium and potassium to take daily. Please stop your losartan/hydrochlorothiazide combination pill and metoprolol XL. Continue your other usual medications as prescribed. You have also been given a temporary prescription for lorazepam 0.25-0.5 mg daily as needed for severe anxiety or panic attack. Please uses sparingly and only if absolutely necessary. Do not take lorazepam with tramadol concurrently as this can decrease your respiratory drive and stop your breathing altogether. Please do not take lorazepam or tramadol with alcohol consumption as this can have the same effect. Please continue to limit your caffeine and alcohol consumption. Discharge Med Rec/Prescriptions Prescriptions: New diltiazem HCl 120 mg Capsule,Extended Release 24hr 120 mg PO DAILY Qty: 30 RF: 0 losartan 100 mg tablet 100 mg PO DAILY Qty: 30 RF: 0 magnesium chloride [Mag 64] 64 mg tablet,delayed release (DR/EC) 64 mg PO DAILY Qty: 30 RF: 0 potassium chloride 10 mEq capsule, extended release 10 meq PO DAILY Qty: 30 RF: 0 lorazepam [Ativan] 0.5 mg tablet 0.25 - 0.5 mg PO DAILY PRN (Reason: anxiety) Qty: 7 RF: 0 Continued atorvastatin 40 mg tablet 1 tab PO BEDTIME RF: 0 apixaban 5 mg tablet 1 tab PO BID RF: 0 buspirone 5 mg tablet 1 tab PO BID RF: 0 tramadol 50 mg tablet 25 mg PO QAM RF: 0 budesonide-formoterol 80-4.5 mcg/actuation HFA aerosol inhaler 1 puff inhalation DAILY RF: 0 Artificial Tears (polyvin alc) 1 drp EYE-BOTH PRN PRN (Reason: Dry Eyes) RF: 0 fluticasone propionate 50 mcg/actuation [place],Suspension 2 spray intranasal DAILY RF: 0 Ocuvite with Lutein 1,000 unit-200 mg-60 unit-2 mg Tablet 1 tab PO BID RF: 0 Discontinued losartan-hydrochlorothiazide 100-25 mg tablet 1 tab PO DAILY RF: 0 metoprolol succinate 100 mg tablet extended release 24 hr 100 mg PO DAILY RF: 0 Provider Discharge Instructions Diet: Low-fat, Low-sodium and Low-cholesterol Activity: Activity as tolerated Visit Report/Discharge Packet Instructions: DI for Atrial Fibrillation Discharge Data Attending Provider: Moo Mahmood Admit Date/Time: 03/11/19 04:36 Discharges patient from system. Discharge Date/Time: 03/11/19 16:30
--- NOTE | 2019-03-11 15:23 | CM.DANOTE ---
Discharge Planning/Care Management DCP: assessment: case received and discussed in Team Rounds. EMR reviewed. Met this afternoon with pt and her Corky. Introduced self and role. Pt is a 74 year old female who admitted early this morning to ICU settin. Hospitalists are following. Payer: Face sheet shows [employer]: [facility] is still sorting this out: see their notes in ADA NOTES. Pt and her confirm that they are in midst of a long planned trip with goal to see their 11 yr old granddaughter in [employer] dance in competition. This is on Tuesday and they were hopeful that they could do this without compromising pt's health. Corky noted that they had already rethought their itinerary and would like stay a couple days in [place] with only a day trip to [place]. Their plan had always been to return to [place] on Friday 03/16. Was just called by Dr. Pompa now. She is seeing pt, says she is stable for d/c this afternoon and will leave once all d/c paperwork is in place. CM Discharge Assessment Start: 03/11/19 08:53 Freq: Status: Active Protocol: Document 03/11/19 08:53 ITV (Rec: 03/11/19 08:55 [id number]) Discharge Planning Assessment Advance Directives? Yes History Provided By Patient Medical Record Prior Living Arrangements House Caregiver for Another Yes: father Max Jovel Review Status In Process Document 03/11/19 15:22 ITV (Rec: 03/11/19 15:23 [email or web address] [id number]) Discharge Planning Assessment Advance Directives? Yes History Provided By Patient Family Member Medical Record Prior Living Arrangements House Household Members spouse Independent with ADL's Yes Is patient alert and oriented? Yes Whiteboard Updated in Patient Room with Yes name and ext. # of Licensed Practical Nurse Clinic Nurse Review Status In Process
== END 2019-03-11 16:30 | disposition home or self-care (01) ==
LOC: ED 03-11 02:33 → ICU 03-11 07:49
PROVIDERS: Internal Medicine; Admitting Provider Nurse Practitioner Gerontology; Emergency Provider Emergency Medicine; Visit Provider Nurse Practitioner Gerontology
DX: I48.0 Paroxysmal atrial fibrillation (principal); I49.9 Cardiac arrhythmia, unspecified; E87.1 Hypo-osmolality and hyponatremia; E83.42 Hypomagnesemia; E87.6 Hypokalemia; I10 Essential (primary) hypertension; E78.5 Hyperlipidemia, unspecified; F41.9 Anxiety disorder, unspecified; J45.909 Unspecified asthma, uncomplicated; J30.2 Other seasonal allergic rhinitis
CPT/HCPCS: 36591; 80053; 83690; 83735; 84100; 84443; 85025; 85610; 85730; 87633; 87797; 92960; 93005; 93010; 96365; 96366; 96375; 99152; 99285; G0378; J2250; J3010; J3480